=== PATIENT | male | born 1975 | race Caucasian/White ===

== ENCOUNTER 2020-10-19 23:56 | Outpatient (CLI) | payer MEDICAID | END 2020-10-19 23:57 | disposition critical access hospital (66) | LOC: EMS 23:56 | PROVIDERS: ATTEND Surgery | DX: R41.82 Altered mental status, unspecified (principal) | CPT/HCPCS: A0425; A0427 ==

== ENCOUNTER 2020-10-20 00:21 | Observation (INO) | payer MEDICAID ==
--- NOTE | 2020-10-20 00:35 | ED Physician Documentation ---
PD HPI ALTERED MENTAL STATUS - Stated complaint Stated Complaint: AMS - History obtained from History obtained from: Patient, EMS (Medics state they found the patient poorly responsive, only to tactile. No focal deficits noted per se. Mumbling, incoherent speech initially, and opens eyes only briefly to tactile.) - History of Present Illness Timing - onset: Today, Unknown (Family members called EMS as the patient reportedly was mumbling and not making sense to them over then phone when one of them called to talk to him. Patient not sure how long the symptoms had been going on. He was by himself at his home.) Timing - details: Other (unknown onset - the patient says he thinks it was abrupt onset of feeling confused and tired. He denies alcohol nor drugs. Denies recent illness. No history of similar problems nor history of DM nor seizures.) Quality / character: Less responsive, Confused Associated symptoms: No: Fever, Headache, Dyspnea, Cough, NVD, Focal weakness Contributing factors: Other (patient denies drugs nor alcohol today. He states he had some cannibis with neighbors a week ago. No new medications. No toxic exposures he is aware of at home.). No: Diabetic, Recent illness, Recent injury Basline status: Alert and oriented X 3, Ambulatory Treatment ACIDIZER: Accucheck, Ehsan Similar symptoms before: Has not had sx before Recently seen: Not recently seen Review of Systems Unable to obtain: AMS (but rousable to answer simple questions) Constitutional: denies: Fever Cardiac: denies: Chest pain / pressure Respiratory: denies: Dyspnea, Cough GI: denies: Vomiting, Diarrhea Skin: denies: Abrasion (s), Laceration (s) Neurologic: denies: Focal weakness, Seizure, Headache, Head injury PD PAST MEDICAL HISTORY - Past Medical History Cardiovascular: Hypertension Respiratory: None Neuro: None Endocrine/Autoimmune: None Psych: None - Present Medications Home Medications: Ambulatory Orders Medication Instructions Recorded Confirmed Carvedilol [Coreg] 3.125 mg PO AC 10/20/20 10/20/20 Lisinopril [Zestril] 20 mg PO DAILY 10/20/20 10/20/20 - Allergies Allergies/Adverse Reactions: Allergies Allergy/AdvReac Type Severity Reaction Status Date / Time Unable to Assess Allergy Verified 10/20/20 00:47 PD ED PE NORMAL - Vitals Vital signs reviewed: Yes - General General: No acute distress, Well developed/nourished. No: Alert and oriented X 3 (oriented to person, not sure of place. ) - HEENT HEENT: Atraumatic, Pharynx benign. No: Moist mucous membranes (dry lips) - Neck Neck: Supple, no meningeal sign, No adenopathy, Other (no neck stiffness. Does not appear in pain. ) - Cardiac Cardiac: RRR, No murmur - Respiratory Respiratory: Clear bilaterally - Abdomen Abdomen: Normal bowel sounds, Soft, Non tender, Non distended - Back Back: No CVA TTP - Derm Derm: Normal color, Warm and dry - Extremities Extremities: No tenderness to palpate, Normal ROM s pain - Neuro Eye Opening: To Pain Motor: Obeys Commands Verbal: Confused GCS Score: 12 - Psych Psych: Normal mood Results - Vitals Vitals: Vital Signs - 24 hr 10/20/20 10/20/20 10/20/20 00:25 01:54 02:00 Temperature 36.9 C Heart Rate 63 56 L 62 Respiratory 16 14 14 Rate Blood Pressure 150/103 H 132/92 H 129/86 H O2 Saturation 96 96 94 10/20/20 10/20/20 04:00 04:21 Temperature Heart Rate 56 L 62 Respiratory 14 14 Rate Blood Pressure 144/91 H 144/91 H O2 Saturation 100 97 Oxygen O2 Source Room air - Labs Labs: Laboratory Tests 10/20/20 10/20/20 10/20/20 00:30 00:30 00:30 WBC 7.8 RBC 4.45 L Hgb 14.0 Hct 39.6 L MCV 89.0 MCH 31.5 H MCHC 35.4 RDW 12.0 Plt Count 278 MPV 8.4 Neut # (Auto) 5.7 Lymph # (Auto) 1.1 L Towns # (Auto) 0.8 Eos # (Auto) 0.2 Baso # (Auto) 0.1 Absolute Nucleated RBC 0.00 Nucleated RBC % 0.0 Sodium 136 Potassium 3.8 Chloride 102 Carbon Dioxide 26 Anion Gap 8.0 BUN 21 H Creatinine 0.9 Estimated GFR (MDRD) 91 Glucose 111 H Calcium 9.0 Magnesium 2.4 Total Bilirubin 0.8 AST 27 ALT 28 Alkaline Phosphatase 53 Total Protein 6.9 Albumin 4.1 Globulin 2.8 Albumin/Globulin Ratio 1.5 TSH 1.33 Urine Color Urine Clarity Urine pH Ur Specific [place] Urine Protein Urine Glucose (UA) Urine Ketones Urine Occult Blood Urine Nitrite Urine Bilirubin Urine Urobilinogen Ur Leukocyte Esterase Ur Microscopic Review Urine Culture Comments Nasal Adenovirus (PCR) Nasal B. parapertussis DNA (PCR) Nasal Coronavir 229E PCR Nasal Coronavir HKU1 PCR Nasal Coronavir NL63 PCR Nasal Coronavir OC43 PCR Nasal Enterovir/Rhinovir PCR Nasal Influenza B PCR Nasal Influenza A PCR Nasal Parainfluen 1 PCR Nasal Parainfluen 2 PCR Nasal Parainfluen 3 PCR Nasal Parainfluen 4 PCR Nasal RSV (PCR) Nasal B.pertussis DNA PCR Nasal C.pneumoniae (PCR) Doron Human Metapneumo PCR Nasal M.pneumoniae (PCR) Nasal SARS-CoV-2 (PCR) Salicylates < 6.0 Urine Opiates Screen Ur Oxycodone Screen Urine Methadone Screen Ur Propoxyphene Screen Acetaminophen < 10 L Ur Barbiturates Screen Ur Tricyclics Screen Ur Phencyclidine Scrn Ur Amphetamine Screen U Methamphetamines Scrn U Benzodiazepines Scrn Urine Cocaine Screen U Cannabinoids Screen Ethyl Alcohol < 5.0 10/20/20 10/20/20 02:52 05:00 WBC RBC Hgb Hct MCV MCH MCHC RDW Plt Count MPV Neut # (Auto) Lymph # (Auto) Towns # (Auto) Eos # (Auto) Baso # (Auto) Absolute Nucleated RBC Nucleated RBC % Sodium Potassium Chloride Carbon Dioxide Anion Gap BUN Creatinine Estimated GFR (MDRD) Glucose Calcium Magnesium Total Bilirubin AST ALT Alkaline Phosphatase Total Protein Albumin Globulin Albumin/Globulin Ratio TSH Urine Color YELLOW Urine Clarity CLEAR Urine pH 6.0 Ur Specific [place] >=1.030 H Urine Protein NEGATIVE Urine Glucose (UA) NEGATIVE Urine Ketones TRACE Urine Occult Blood NEGATIVE Urine Nitrite NEGATIVE Urine Bilirubin NEGATIVE Urine Urobilinogen 0.2 (NORMAL) Ur Leukocyte Esterase NEGATIVE Ur Microscopic Review NOT INDICATED Urine Culture Comments NOT INDICATED Nasal Adenovirus (PCR) NOT DETECTED Nasal B. parapertussis DNA (PCR) NOT DETECTED Nasal Coronavir 229E PCR NOT DETECTED Nasal Coronavir HKU1 PCR NOT DETECTED Nasal Coronavir NL63 PCR NOT DETECTED Nasal Coronavir OC43 PCR NOT DETECTED Nasal Enterovir/Rhinovir PCR NOT DETECTED Nasal Influenza B PCR NOT DETECTED Nasal Influenza A PCR NOT DETECTED Nasal Parainfluen 1 PCR NOT DETECTED Nasal Parainfluen 2 PCR NOT DETECTED Nasal Parainfluen 3 PCR NOT DETECTED Nasal Parainfluen 4 PCR NOT DETECTED Nasal RSV (PCR) NOT DETECTED Nasal B.pertussis DNA PCR NOT DETECTED Nasal C.pneumoniae (PCR) NOT DETECTED Doron Human Metapneumo PCR NOT DETECTED Nasal M.pneumoniae (PCR) NOT DETECTED Nasal SARS-CoV-2 (PCR) NOT DETECTED Salicylates Urine Opiates Screen NEGATIVE Ur Oxycodone Screen NEGATIVE Urine Methadone Screen NEGATIVE Ur Propoxyphene Screen NEGATIVE Acetaminophen Ur Barbiturates Screen NEGATIVE Ur Tricyclics Screen NEGATIVE Ur Phencyclidine Scrn NEGATIVE Ur Amphetamine Screen NEGATIVE U Methamphetamines Scrn NEGATIVE U Benzodiazepines Scrn NEGATIVE Urine Cocaine Screen NEGATIVE U Cannabinoids Screen NEGATIVE Ethyl Alcohol - Rads (name of study) head CT Radiology: Prelim report reviewed (no acute process), See rad report chest xray Radiology: Prelim report reviewed (no acute findings.), See rad report PD MEDICAL DECISION MAKING - ED course Complexity details: reviewed results, re-evaluated patient (still somnolent, but rousable. Somewhat sluggish answering. Awaiting urine sample for tox screen. ), considered differential (no focal deficit and seems somnolent and confused. Consider metabolic, less likely infectious without symptoms, fever, headache, nor white count to point that way. Also consider toxic and will get ETOH and UTox, though patient denies drugs/alcohol/new meds today. ), d/w patient ED course: Further time in ER and he is still rousable to tactile/voice. However, sluggish answers. No headache still. Nurse stood him for getting urine sample and reportedly the patient unsteady stance. 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 No apparent toxic cause, nor metabolic. Still clinically low suspicion for infectious. No report nor findings of injury/concussive. Departure - Departure Disposition: ED Place in Observation Clinical Impression: Altered mental status Qualifiers: Altered mental status type: delirium Qualified Code(s): R41.0 - Disorientation, unspecified Condition: Stable Record reviewed to determine appropriate education?: Yes
[2020-10-20] MEDS ORDERED: SODIUM CHLORIDE 0.9% 1,000 ML IV STA (00:39)
[2020-10-20 00:55] LABS: BASOPHILS # (AUTO) 0.1 10^3/uL (0.0-0.1); BASOPHILS % (AUTO) 0.9 %; EOSINOPHILS # (AUTO) 0.2 10^3/uL (0.0-0.7); EOSINOPHILS % (AUTO) 2.3 %; HCT - HEMATOCRIT 39.6 % (42.0-52.0); LYMPHOCYTES # (AUTO) 1.1 10^3/uL (1.5-3.5); LYMPHOCYTES % (AUTO) 14.4 %; MEAN CORPUSCULAR HEMOGLOBIN 31.5 pg (27.0-31.0); MEAN CORPUSCULAR HGB CONC 35.4 g/dL (32.0-36.0); MEAN PLATELET VOLUME 8.4 fL (7.4-11.4); MONOCYTES # (AUTO) 0.8 10^3/uL (0.0-1.0); MONOCYTES % (AUTO) 10.1 %; NEUTROPHILS # (AUTO) 5.7 10^3/uL (1.5-6.6); PLT - PLATELET COUNT 278 10^3/uL (130-450); RED BLOOD COUNT 4.45 10^6/uL (4.70-6.10); WHITE BLOOD COUNT 7.8 x10^3/uL (4.8-10.8)
[2020-10-20 01:05] LABS: ACETAMINOPHEN < 10 ug/mL (10-30); ALBUMIN 4.1 g/dL (3.2-5.5); ALBUMIN/GLOBULIN RATIO 1.5 (1.0-2.2); ALKALINE PHOSPHATASE 53 IU/L (42-121); ALT ALANINE AMINOTRANSFERASE 28 IU/L (10-60); AST ASPARTATE AMINOTRANSFERASE 27 IU/L (10-42); BILIRUBIN,TOTAL 0.8 mg/dL (0.2-1.0); BUN - BLOOD UREA NITROGEN 21 mg/dL (6-20); CARBON DIOXIDE - CO2 26 mmol/L (21-32); CHLORIDE 102 mmol/L (101-111); CREATININE 0.9 mg/dL (0.6-1.2); ETOH - ETHANOL < 5.0 mg/dL; GFR - MDRD 91 (>89); GLUCOSE 111 mg/dL (70-100); MAGNESIUM 2.4 mg/dL (1.7-2.8); POTASSIUM 3.8 mmol/L (3.5-5.0); SALICYLATE < 6.0 mg/dL; SODIUM 136 mmol/L (135-145); TOTAL PROTEIN 6.9 g/dL (6.7-8.2)
[2020-10-20 03:49] LABS: B. PARAPERTUSSIS- RESP PCR PAN NOT DETECTED; B. PERTUSSIS- RESP PCR PANEL NOT DETECTED; C. PNEUMONIAE- RESP PCR PANEL NOT DETECTED; CORONAVIRUS 229E-RESP PCR NOT DETECTED; CORONAVIRUS HKU1-RESP PCR NOT DETECTED; CORONAVIRUS NL63-RESP PCR NOT DETECTED; CORONAVIRUS OC43-RESP PCR NOT DETECTED; HUMAN METAPNEUMOVIRUS NOT DETECTED; INFLUENZA A- RESP PCR PANEL NOT DETECTED; INFLUENZA B - RESP PCR PANEL NOT DETECTED; M. PNEUMONIAE- RESP PCR PANEL NOT DETECTED; PARAINFLUENZA VIRUS 1 NOT DETECTED; PARAINFLUENZA VIRUS 2 NOT DETECTED; PARAINFLUENZA VIRUS 3 NOT DETECTED; PARAINFLUENZA VIRUS 4 NOT DETECTED; RHINOVIRUS/ENTEROVIRUS NOT DETECTED; RSV- RESP PCR PANEL NOT DETECTED; SARS-CoV-2 -RESP PCR PANEL NOT DETECTED
[2020-10-20 05:10] LABS: MUDS CUTOFF CONCENTRATIONS CUTOFF CONC BELOW:
[2020-10-20 05:25] LABS: BILIRUBIN,URINE NEGATIVE (NEGATIVE); GLUCOSE, URINE (UA) NEGATIVE (NEGATIVE); KETONES,URINE (UA) TRACE mg/dL (NEGATIVE); LEUKOCYTE ESTERASE, URINE NEGATIVE (NEGATIVE); NITRITE,URINE NEGATIVE (NEGATIVE); OCCULT BLOOD,URINE NEGATIVE (NEGATIVE); PROTEIN,URINE NEGATIVE (NEGATIVE); UROBILINOGEN,URINE 0.2 (NORMAL) E.U./dL (NORMAL)
[2020-10-20 05:27] LABS: CLARITY,URINE CLEAR (CLEAR)
[2020-10-20 05:36] LABS: AMPHETAMINE SCREEN,URINE NEGATIVE (NEGATIVE); BARBITURATE SCREEN,UR NEGATIVE (NEGATIVE); BENZODIAZEPINES SCREEN, URINE NEGATIVE (NEGATIVE); COCAINE SCREEN URINE NEGATIVE (NEGATIVE); METHADONE SCREEN, URINE NEGATIVE (NEGATIVE); METHAMPHETAMINES SCREEN, URINE NEGATIVE (NEGATIVE); OPIATE SCREEN, URINE NEGATIVE (NEGATIVE); OXYCODONE SCREEN, URINE NEGATIVE (NEGATIVE); PROPOXYPHENE SCREEN, URINE NEGATIVE (NEGATIVE); THC CANNABINOID SCREEN, URINE NEGATIVE (NEGATIVE); TRICYCLIC ANTIDEPRESSANT,URINE NEGATIVE (NEGATIVE)
--- NOTE | 2020-10-20 07:15 | CT Report ---
PROCEDURE: HEAD WO INDICATIONS: Acute mental status changes this evening TECHNIQUE: Noncontrast 4.5 mm thick angled axial sections acquired from the foramen magnum to the vertex. For r adiation dose reduction, the following was used: automated exposure control, adjustment of mA and/or kV according to patient size. COMPARISON: None. FINDINGS: Image quality: Excellent. CSF spaces: Basal cisterns are patent. No extra-axial fluid collections. Ventricles are normal in size and shape. Brain: No midline shift. No intracranial masses or hemorrhage. Parra-white matter interface is norm al. Skull and face: Calvarium and visualized facial bones are intact, without suspicious lesions. Sinuses: Visualized sinuses and mastoids are clear. IMPRESSION: No acute intracranial disease process. Reviewed by: Michelle Elena MD, PhD on 10/20/2020 7:14 AM PST Approved by: Michelle Elena MD, PhD on 10/20/2020 7:14 AM [facility] Station ID: [id number]
[2020-10-20] MEDS ORDERED: SODIUM CHLORIDE FLUSH 0.9% 10 ML SYRINGE IVP PRN (07:19)
--- NOTE | 2020-10-20 07:32 | HISTORY & PHYSICAL EXAMINATION ---
Chief Complaint - Chief Complaint Chief Complaint: Altered mental status, unsteady gait History of Present Illness - Admitted From Admitted From:: On license of [facility] ED - History Obtained From Records Reviewed: Yes History obtained from: Patient - History of Present Illness HPI Comment/Other: Patient is 44-year-old male with medical history significant for hypertension and methamphetamine use who presented to the ED today with complaint of altered mental status. However on further inquiry he explains that he has been working 15 to 16-hour days for almost a year and he feels very exhausted. As a result he used methamphetamine 5 days which he referred an "uppers". 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 He was talking to his son and [id number] and suddenly he was unable to move. This lasted a few minutes. His family thought he seemed confused. The patient thinks he may have been hallucinating. His family was concerned and wanted him to be evaluated in the emergency room. He denied dizziness, headache, dysarthria, blurry or double vision at the time. He also denied chest pain, dyspnea, abdominal pain, nausea or vomiting. Work-up in the ED was largely unremarkable.This included a CT of the head without contrast which was unremarkable. His UDS was also negative However as a result of his presentation he was admitted for a TIA/CVA work-up. History - Past Medical History Cardiovascular: reports: Hypertension Respiratory: reports: None Neuro: reports: None Endocrine/Autoimmune: reports: None Psych: reports: None - Family & Social History Family History Comment/Other: Patient denies any significant family history Social History Notes: He lives alone. 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 However he also has a place in [place]. He smokes about 5 to 6 cigarettes daily. He started 3 years ago. He denies alcohol use. He uses methamphetamine and last used 5 days ago. - POLST Patient has POLST: No POLST Status: Full Code Meds/Allgy - Home Medications Home Medications: Ambulatory Orders Medication Instructions Recorded Confirmed Carvedilol [Coreg] 3.125 mg PO AC 10/20/20 10/20/20 Lisinopril [Zestril] 20 mg PO DAILY 10/20/20 10/20/20 - Allergies Allergies/Adverse Reactions: Allergies Allergy/AdvReac Type Severity Reaction Status Date / Time Unable to Assess Allergy Verified 10/20/20 00:47 Review of Systems - Constitutional Constitutional: reports: Fatigue, Weakness. denies: Fever, Chills, Diaphoresis - Eyes Eyes: denies: Pain, Vision loss, Dipolpia - Ears, Nose & Throat Ears, Nose & Throat: denies: Ear pain, Vertigo, Sore throat - Cardiovascular Cariovascular: reports: Edema (Patient's hands and legs are puffy/swollen but nonpitting.). denies: Irregular heart rate, Palpitations, Chest pain - Respiratory Respiratory: denies: Cough, Sputum production, Wheezing, SOB at rest, SOB with exertion - Gastrointestinal Gastrointestinal: denies: Abdominal pain, Abdominal distention, Constipation, Diarrhea, Nausea, Vomiting, Coffee grounds emesis, Reflux/heartburn - Genitourinary Genitourinary: denies: Dysuria, Frequency, Urgency, Hematuria - Musculoskeletal Musculoskeletal: denies: Muscle pain, Back pain, Muscle aches - Integumentary Integumentary: denies: Rash, Pruritis - Neurological Neurological: denies: Focal weakness, Headache, Dizziness - Psychiatric Psychiatric: denies: Depression, Anxiety - Endocrine Endocrine: denies: Polyuria, Polydypsia - Hematologic/Lymphatic Hematologic/Lymphatic: denies: Anemia, Bruising, Petechiae Prior Level of Functionality: Patient is independent of activities of daily living Exam - Vital Signs Vital Signs: Vital Signs x48h Temp Pulse Resp BP Pulse Ox 10/20/20 04:21 62 14 144/91 H 97 10/20/20 04:00 56 L 14 144/91 H 100 10/20/20 02:00 62 14 129/86 H 94 10/20/20 01:54 56 L 14 132/92 H 96 10/20/20 00:25 36.9 C 63 16 150/103 H 96 - Physical Exam General Appearance: positive: No acute distress, Alert Eyes Bilateral: positive: PERRL, EOMI ENT: positive: No signs of dehydration Neck: positive: Nml inspection, No JVD, Trachea midline Respiratory: positive: Chest non-tender, No respiratory distress, Breath sounds nml. negative: Wheezes, Rales, Rhonchi Cardiovascular: positive: Regular rate & rhythm, No murmur Abdomen: positive: Non-tender, No organomegaly, Nml bowel sounds. negative: Guarding, Rebound Back: positive: Nml inspection Skin: positive: Color nml, No rash, Warm, Dry Extremities: positive: Non-tender, Full ROM, Nml appearance, Pedal edema (Nonpitting edema.) Neurologic/Psychiatric: positive: Oriented x3, CN's nml (2-12), Motor nml, Sensation nml, Mood/affect nml Conclusion/Plan - Problem List (1) Altered mental status Conclusion/Plan: Etiology undetermined. CT of the brain without contrast was unremarkable. However will do a TIA/CVA work-up MRI of the brain, 2D echo ordered. Neurochecks every shift. Patient was given a dose of aspirin 325 mg. Qualifiers: Altered mental status type: delirium Qualified Code(s): R41.0 - Disorientation, unspecified (2) Hypertension Conclusion/Plan: Patient is on carvedilol and lisinopril. Will continue. Patient had non-pitting edema in his hands and legs. As a result he was given Lasix 40 mg p.o. x1 - Lab Results Fish Bones: 10/20/20 00:30 10/20/20 00:30 Core Measures - Anticipated LOS I expect patient to be DC'd or transferred within 96 hours.: Yes - DVT/VTE - Prophylaxis VTE/DVT Device ordered at admit?: Yes VTE/DVT Prophylaxis med ordered at admit?: Yes
[2020-10-20] MEDS ORDERED: ASPIRIN 325 MG TABLET PO STA (07:34)
[2020-10-20] MEDS ORDERED: SODIUM CHLORIDE FLUSH 0.9% 10 ML SYRINGE IVP SCH (09:00)
[2020-10-20] MEDS ORDERED: ENOXAPARIN 40 MG/0.4 ML SYRINGE SUBQ SCH (09:00)
--- NOTE | 2020-10-20 09:18 | XRAY Report ---
PROCEDURE: Chest 1 View X-Ray INDICATIONS: chest pain TECHNIQUE: One view of the chest was acquired. COMPARISON: FINDINGS: Surgical changes and devices: None. Lungs and pleura: No pleural effusions or pneumothorax. Lungs are clear. Mediastinum: Mediastinal contours appear normal. Heart size is at the upper limits of normal. Bones and chest wall: No suspicious bony lesions. Overlying soft tissues appear unremarkable. IMPRESSION: The heart size is at the upper limits of normal and the cardiac silhouette is somewhat globular. Foll ow-up by obtaining a two-view radiology Department plain film of the chest with deep inspiration like ly is warranted. If the appearance of prominence of the cardiac silhouette persists further assessmen t for underlying cardiac disease may be warranted. Reviewed by: Wilver Nuno MD on 10/20/2020 9:16 AM [facility] Approved by: Wilver Nuno MD on 10/20/2020 9:16 AM [facility] Station ID: [id number]
[2020-10-20] MEDS ORDERED: FUROSEMIDE 20 MG TABLET PO ONE (13:33)
--- NOTE | 2020-10-20 14:28 | MRI Report ---
PROCEDURE: Brain W/O INDICATIONS: AMS, unsteady TECHNIQUE: Noncontrast axial T1 spin echo, axial T2 fast spin echo, sagittal and axial FLAIR, coronal T2 fast sp in echo, axial gradient echo, axial diffusion and ADC through the brain. COMPARISON: Relation is made with the accompanying prior head CT, 10/20/2020. FINDINGS: Image quality: Diagnostic. CSF Spaces: Basal cisterns are patent. No extra-axial fluid collections. Ventricles are normal in size and shape. Brain: No intracranial masses or hemorrhage. Parra/white matter interface is normal. Brainstem appe ars normal. Diffusion-weighted images demonstrate no acute ischemic insult. No chronic ischemic ins ults. Normal intravascular flow voids are present. Skull and face: Calvarium has normal marrow signal. Orbits appear normal. Sinuses: Mild mucosal thickening is seen within the maxillary sinuses, right greater than left. There is moderate mucosal thickening within the ethmoid air cells, right worse than left. Milder mucosal t hickening is seen elsewhere within the paranasal sinuses. No significant abnormal fluid can be seen w ithin the mastoid air cells or within the middle ear cavities. IMPRESSION: No significant intracranial abnormality is seen. No findings of acute or subacute infarction are seen. Paranasal sinus disease noted. Reviewed by: Fidel Craven MD on 10/20/2020 1:27 PM [facility] Approved by: Fidel Craven MD on 10/20/2020 1:27 PM [facility] Station ID: [id number]
[2020-10-20 15:33] VITALS: BP 139/90
--- NOTE | 2020-10-20 16:08 | DISCHARGE SUMMARY ---
Discharge Summary Admit Date: 10/20/20 Discharge Date: 10/20/20 Discharging Provider: Sanjana Han Condition at Discharge: Stable Discharge Disposition: 01 Home, Self Care - DIAGNOSES Admission Diagnoses: Altered mental status Hypertension Discharge Diagnoses with Status of Each Condition: Altered mental status: Resolved Hypertension: Chronic - HPI History of Present Illness: Patient is 44-year-old male with medical history significant for hypertension and methamphetamine use who presented to the ED today with complaint of altered mental status. However on further inquiry he explains that he has been working 15 to 16-hour days for almost a year and he feels very exhausted. As a result he used methamphetamine 5 days which he referred an "uppers". 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 This lasted a few minutes. His family thought he seemed confused. The patient thinks he may have been hallucinating. His family was concerned and wanted him to be evaluated in the emergency room. He denied dizziness, headache, dysarthria, blurry or double vision at the time. He also denied chest pain, dyspnea, abdominal pain, nausea or vomiting. Work-up in the ED was largely unremarkable.This included a CT of the head without contrast which was unremarkable. His UDS was also negative However as a result of his presentation he was admitted for a TIA/CVA work-up. - HOSPITAL COURSE Hospital Course: Patient's stay in the hospital was unremarkable. There were no significant events. His altered mental status improve/resolve in the cause of his time here. However the patient's hands and legs appeared puffy/swollen so he was given a dose of Lasix 40 mg p.o. x1. He underwent an MRI Which showed no significant intracranial abnormality. There was no findings of acute or subacute infarction. 2D echocardiogram done which showed mild concentric left ventricular hypertrophy. Overall the left ventricular systolic function is normal with an ejection fraction of 60 to 65%. There was normal diastole. There was no lg onal wall motion abnormality. There was mild to moderate increase in the left atrial volume index. Moderate right atrial enlargement. The aortic valve is trileaflet. There was no evidence of aortic stenosis. Right systolic ventricular pressure at rest was 37 mmHg. Currently the patient is being discharged home. He has been advised to quit smoking and to quit using methamphetamine. He expresses understanding. - ALLERGIES Allergies/Adverse Reactions: Allergies Allergy/AdvReac Type Severity Reaction Status Date / Time Unable to Assess Allergy Verified 10/20/20 00:47 - MEDICATIONS Home Medications: Ambulatory Orders Medication Instructions Recorded Confirmed Carvedilol [Coreg] 3.125 mg PO AC 10/20/20 10/20/20 Lisinopril [Zestril] 20 mg PO DAILY 10/20/20 10/20/20 - PHYSICAL EXAM AT DISCHARGE General Appearance: positive: No acute distress, Alert Eyes Bilateral: positive: PERRL, EOMI ENT: positive: No signs of dehydration Neck: positive: No JVD, Trachea midline Respiratory: positive: Chest non-tender, No respiratory distress, Breath sounds nml. negative: Wheezes, Rales, Rhonchi Cardiovascular: positive: Regular rate & rhythm, No murmur Abdomen: positive: Non-tender, No organomegaly, Nml bowel sounds, No distention. negative: Guarding, Rebound Back: positive: Nml inspection Skin: positive: Color nml, No rash, Warm, Dry Extremities: positive: Non-tender, Full ROM, Pedal edema (Nonpitting edema noted in legs and hand) Neurologic/Psychiatric: positive: Oriented x3, Mood/affect nml - LABS Result Diagrams: 10/20/20 00:30 10/20/20 00:30 - FOLLOW UP Follow Up: Follow-up with primary care physician within 7 days. Reason is for posthospitalization visit. - TIME SPENT Time Spent in Discharge (Minutes): 25
--- NOTE | 2020-10-20 16:14 | Discharge Plan ---
Discharge Plan Problem Reviewed?: Yes Disposition: Home, Self Care Condition: Stable Diet: Regular Activity Restrictions: Activity as Tolerated Shower Restrictions: No Driving Restrictions: No Health Concerns: You presented for concern of altered mental status. The more serious possible cause for this could have been a stroke. You underwent a work-up which included a CT scanning of your brain, MRI of your brain and 2D echocardiogram of your heart which all came back unremarkable/negative for a stroke, mass or aneurysm. It could simply have been that you were very exhausted all this could have been effects of the recreational substances you use. You have been advised to stop using recreational substances (methamphetamine). You have been advised to continue taking your antihypertensives which include carvedilol and lisinopril. Follow-up with your primary care physician in 5 to 7 days. You expressed understanding to the above discussion and agreeable to complying. Plan of Treatment: You presented for concern of altered mental status. The more serious possible cause for this could have been a stroke. You underwent a work-up which included a CT scanning of your brain, MRI of your brain and 2D echocardiogram of your heart which all came back unremarkable/negative for a stroke, mass or aneurysm. It could simply have been that you were very exhausted all this could have been effects of the recreational substances you use. You have been advised to stop using recreational substances (methamphetamine). You have been advised to continue taking your antihypertensives which include carvedilol and lisinopril. Follow-up with your primary care physician in 5 to 7 days. You expressed understanding to the above discussion and agreeable to complying. Care Goals: You presented for concern of altered mental status. The more serious possible cause for this could have been a stroke. You underwent a work-up which included a CT scanning of your brain, MRI of your brain and 2D echocardiogram of your heart which all came back unremarkable/negative for a stroke, mass or aneurysm. It could simply have been that you were very exhausted all this could have been effects of the recreational substances you use. You have been advised to stop using recreational substances (methamphetamine). You have been advised to continue taking your antihypertensives which include carvedilol and lisinopril. Follow-up with your primary care physician in 5 to 7 days. You expressed understanding to the above discussion and agreeable to complying. No Smoking: If you smoke, Please STOP! Call for help.
--- NOTE | 2020-10-20 16:39 | PHARMACY PROGRESS NOTE ---
- Best Possible Medication History Admit Date and Time: 10/20/20 0719 Processed by: Pharmacy Medication History completed: Yes Patient Interview: Completed Secondary Source(s): Pharmacy records (Interviewed by myself. ) Patient starting on new medications, with increased doses. He was unclear of new doses. Called pharmacy and updated medication list with directions for most recently fill prescriptions. As the person ultimately responsible for medication therapy, providers are able to order a medication from an existing home medication list in [facility] via the "Reconcile Routine" prior to Confirmation of that medication by technical support assistant. Such practice is discouraged except when the physician, in their clinical judgment, deems that a medical need exists for a medication without regard to previous use.
== END 2020-10-20 16:49 | disposition home or self-care (01) ==
LOC: ED 00:21 → MS2 07:19
PROVIDERS: ADMIT Internal Medicine; ATTEND Internal Medicine
DX: R40.4 Transient alteration of awareness (principal); I10 Essential (primary) hypertension; F17.210 Nicotine dependence, cigarettes, uncomplicated; R60.9 Edema, unspecified; Z79.899 Other long term (current) drug therapy; Z72.89 Other problems related to lifestyle
CPT/HCPCS: 0202U; 36415; 70450; 70551; 71045; 80053; 80306; 80307; 80320; 80329; 81003; 83735; 84443; 84484; 85025; 93005; 93306; 96360; 96361; 96372; 97161; 99284; 99285; A9270; G0378; J1650; 81001; 87086